=== PATIENT | male | born 1945 | race African-American/Black ===

== ENCOUNTER 2020-07-22 08:04 | Observation (INO) | payer BC, MEDICARE ==
[2020-07-20 15:39] LABS: BASOPHILS % 0.3 % (0.0-1.0); EOSINOPHILS % 0.3 % (0.0-6.0); HEMATOCRIT 45.4 % (38.2-49.6); HEMOGLOBIN 14.7 g/dL (14.0-18.0); LYMPHOCYTES # (AUTO) 1.8 (1.0-3.2); LYMPHOCYTES % 28.5 % (18.0-39.1); MEAN CORPUSCULAR HEMOGLOBIN 29.8 pg (28-32); MEAN CORPUSCULAR HGB CONC 32.4 g/dL (31-35); MEAN CORPUSCULAR VOLUME 92.1 fL (81-99); MONOCYTES # (AUTO) 0.5 (0.2-0.8); MONOCYTES % 8.5 % (4.4-11.3); NEUTROPHILS # (AUTO) 3.9 (2.1-6.9); NEUTROPHILS % 61.9 % (38.7-80.0); PLATELET COUNT 175 x10e3/uL (140-360); RED BLOOD COUNT 4.93 x10e6/uL (4.3-5.7); RED CELL DISTRIBUTION WIDTH 12.8 % (11.7-14.4)
[2020-07-20 15:43] LABS: INR 0.93
[2020-07-20 15:44] LABS: PARTIAL THROMBOPLASTIN TIME 26.2 seconds (23.8-35.5)
[2020-07-20 15:48] LABS: ANION GAP 13.4 mmol/L (8-16); BLOOD UREA NITROGEN 15 mg/dL (7-26); BUN/CREATININE RATIO 17 (6-25); CALCIUM 9.3 mg/dL (8.4-10.2); CARBON DIOXIDE 27 mmol/L (22-29); CHLORIDE 106 mmol/L (98-107); EST GLOMERULAR FILTRATION RATE > 60 ML/MIN (60-); GLUCOSE 81 mg/dL (74-118); POTASSIUM 3.4 mmol/L (3.5-5.1); SODIUM 143 mmol/L (136-145)
[~2020-07-22] VITALS: Ht 157.5 cm; Wt 68.0 kg
[~2020-07-22 08:04] MED LIST: ACETAMINOPHEN 1000 MG/100 ML 100 ML IV ONE; ALBUTEROL0.63 MG/3 NEB; IBUPROFEN 800MG/ 200ML 200 ML IV ONE; INCRUSE ELLI62.5 MCG INH; LIDOCAINE HCL (LTA) 4 ML SOLN ONE; MONTELUKAST SOD10 MG PO; PREDNISONE10 MG PO
[2020-07-22] MEDS ORDERED: CEFAZOLIN SOD 1 GM/NS 50ML 50 ML IV ONE (09:24)
[2020-07-22] MEDS ORDERED: THROMBIN FOR SOLN 5,000 UNIT VIAL ONE (09:57)
[2020-07-22] MEDS ORDERED: BUPIVACAINE 0.5%/EPI 30 ML SDV INJ ONE (09:57)
[2020-07-22] MEDS ORDERED: VANCOMYCIN HCL 1 GM VIAL ONE (09:57)
[2020-07-22] MEDS ORDERED: HYDROCODON-ACE1 EA12 PO (12:26)
[2020-07-22] MEDS ORDERED: ACETAMINOPHEN 325 MG TAB PO PRN (12:30)
[2020-07-22] MEDS ORDERED: HYDROMORPHONE 2MG/ML 2 MG/ML ML IV PRN (12:30)
[2020-07-22] MEDS ORDERED: CARISOPRODOL 350 MG TAB PO PRN (12:30)
[2020-07-22] MEDS ORDERED: ALBUTEROL SULF 0.083% NEB SOLN 3 ML NEB NEB PRN (12:30)
[2020-07-22] MEDS ORDERED: OXYCODONE/ACETAMINOPHEN 5-325 1 EACH TABLET PO PRN (12:30)
[2020-07-22] MEDS ORDERED: MAGNESIUM/ALUMINUM/SIMETHICONE 30 ML UDC PO PRN (12:30)
[2020-07-22] MEDS ORDERED: ONDANSETRON HCL INJ 2MG/ML 2ML 2 MG/ML VIAL IV PRN (12:30)
[2020-07-22] MEDS ORDERED: PROMETHAZINE HCL (IM) 25 MG/ML VIAL IM PRN (12:30)
[2020-07-22] MEDS ORDERED: MORPHINE SULFATE 5 MG/ML VIAL IM PRN (12:30)
[2020-07-22] MEDS ORDERED: CEPACOL SORE THROAT LOZENGES PO PRN (12:30)
[2020-07-22] MEDS ORDERED: ONDANSETRON HCL INJ 2MG/ML 2ML 2 MG/ML VIAL ONE (12:46)
[2020-07-22] MEDS ORDERED: EPHEDRINE SULFATE INJ 50 MG/ML VIAL ONE (12:46)
[2020-07-22] MEDS ORDERED: GLYCOPYRROLATE INJ 0.2 MG/ML VIAL ONE (12:46)
[2020-07-22] MEDS ORDERED: SEVOFLURANE INHAL SOLN 250 ML PEN BTL ONE (12:46)
[2020-07-22] MEDS ORDERED: LIDOCAINE HCL 2% JELLY 5 ML TUBE ONE (12:46)
[2020-07-22] MEDS ORDERED: LIDOCAINE HCL 2% LOCAL INJ 5 ML SDV VIAL INJ ONE (12:46)
[2020-07-22] MEDS ORDERED: ROCURONIUM BROMIDE 10 MG/ML 5ML VIAL IV ONE (12:46)
[2020-07-22] MEDS ORDERED: DEXAMETHASONE SOD PHOS INJ 4 MG/ML VIAL ONE (12:46)
[2020-07-22] MEDS ORDERED: NEOSTIGMINE 1 MG/ML 10ML VIAL ONE (12:46)
[2020-07-22] MEDS ORDERED: PROPOFOL IV EMULSION 10 MG/ML 20 ML VIAL ONE (12:46)
[2020-07-22] MEDS ORDERED: FENTANYL CITRATE/PF 100MCG/2 ML INJ ONE ×2 (13:36→13:47)
[2020-07-22 15:40] VITALS: BP 140/79
[2020-07-22 15:58] VITALS: BP 140/79
[2020-07-22 15:59] VITALS: BP 140/79
[2020-07-22] MEDS: HYDROCORTISONE SOD SUCCINATE 100 MG VIAL IV SCH ×2 (16:38→22:49)
[2020-07-22] MEDS: LACTATED RINGER'S 1,000 ML IV SCH ×2 (16:38→20:04)
[2020-07-22 20:00] VITALS: BP 137/75
[2020-07-22] MEDS: CEFAZOLIN SOD 1 GM/NS 50ML 50 ML IV SCH (20:12)
[2020-07-22 20:23] VITALS: BP 137/75
[2020-07-22] MEDS ORDERED: PREDNISONE 10 MG TAB PO SCH (21:00)
[2020-07-22] MEDS ORDERED: MONTELUKAST SODIUM 10 MG TAB PO SCH (21:00)
[2020-07-22] MEDS ORDERED: ZOLPIDEM TARTRATE 5 MG TAB PO PRN (21:00)
[2020-07-23] VITALS: BP 137/78
[2020-07-23] MEDS: CEFAZOLIN SOD 1 GM/NS 50ML 50 ML IV SCH ×2 (03:43→12:00)
[2020-07-23 04:00] VITALS: BP 131/68
[2020-07-23] MEDS: LACTATED RINGER'S 1,000 ML IV SCH (04:03)
[2020-07-23] MEDS: HYDROCORTISONE SOD SUCCINATE 100 MG VIAL IV SCH (06:31)
[2020-07-23 08:06] VITALS: BP 153/79
[2020-07-23 09:40] VITALS: BP 153/79
[2020-07-23 12:19] VITALS: BP 124/64
[2020-07-23 16:00] VITALS: BP 136/81
== END 2020-07-23 13:10 | disposition home or self-care (01) ==
LOC: OR 08:04 → EDBD 12:00 → PACU V 13:41 → MED/SURG 15:44
PROVIDERS: ADMIT Neurological Surgery; ATTEND Neurological Surgery
DX: M50.11 Cervical disc disorder with radiculopathy, high cervical region (principal); Z20.822 Contact with and (suspected) exposure to COVID-19; Z01.818 Encounter for other preprocedural examination; E78.5 Hyperlipidemia, unspecified; J45.909 Unspecified asthma, uncomplicated
CPT/HCPCS: 20931; 22551; 22845; 36415; 71046; 72040; 77003; 80048; 85025; 85610; 85730; 86850; 86900; 88304; 93005; C1713 ×2; G0378 ×2; J0131; J0690 ×2; J1100; J1720 ×2; J2001 ×2; J2405; J2704; J2710; J3010; J3370; J7121; U0002

== ENCOUNTER → 2020-08-19 | Outpatient (CLI) | payer BC, MEDICARE ==
[~2020-08-19] MED LIST changes: -ACETAMINOPHEN 1000 MG/100 ML 100 ML IV ONE; +HYDROCODON-ACE1 EA12 PO; -IBUPROFEN 800MG/ 200ML 200 ML IV ONE; -LIDOCAINE HCL (LTA) 4 ML SOLN ONE
== END ==
LOC: RAD 13:17
PROVIDERS: ATTEND Neurological Surgery
DX: M50.20 Other cervical disc displacement, unspecified cervical region (principal); M43.22 Fusion of spine, cervical region
CPT/HCPCS: 72050